=== PATIENT | female | born 1990 | race Asian ===

== ENCOUNTER 2018-11-09 00:56 | Inpatient (IN) | payer OTHER, SELFPAY ==
[2018-11-09 01:26] VITALS: BMI 26.6
--- NOTE | 2018-11-09 01:39 | PDOC.LDHP ---
Labor and Delivery H&P Chief complaint: loss of fluid HPI: Pranav is a 28 y/o at 39.6wks by 16wk US c/w LMP She reports consistent contractions since 11/08. She denies LOF, VB/VD, decreased movement, headache, chest pain, or shortness of breath. She is seen at clinic by Dr. Cuba. Current gestational age (weeks): 39 (.6) Due date: 11/10/18 Dating criteria: last menstrual period Grav: 1 Para: 0 OB History Details: C Current complications: none Abnormal US findings: Yes (hadlock 22%) Past Medical History: none Current medications: pre-mahnaz vitamins Previous surgical history: none Allergies/Adverse Reactions: Allergies Allergy/AdvReac Type Severity Reaction Status Date / Time No Known Allergies Allergy Verified 11/09/18 01:21 Social history: none - Physical Exam Vital signs reviewed and normal: yes General: breathing through contractions Heart: RRR Lungs: CTAB Abdomen: NTTP Extremeties: no edema FHT: category 1 (baseline 130, no decels, accels present), variability present - Vaginal Exam cm dilated: 3 Effacement: 75% Station: -2 - OB Labs Blood type: B RH: positive Antibody Screen: negative HIV: negative RPR: negative HEPSAg: negative 1 hour GCT: negative GBS: negative Urine drug screen: not done Rubella: immune Additional Labs: pap wnl, GC neg - Assessment L&D Assessment: term patient in labor - Plan Plan: admit to L&D, labor augmentation if indicated -: - admit to LD for expectant mgmt for , recheck in 2 hours, labor augmentation if indicated - continuous monitoring - desires epidural, consult anesthesiology Addendum - Attending - Attending Attestation Date/Time: 11/09/18 0750 I personally evaluated the patient and discussed the management with Dr. Braun. I agree with the History, Examination, Assessment and Plan.
[2018-11-09 01:42] LABS: Amnisure Test No Membranes Rupture (No Rupture)
[2018-11-09 01:43] LABS: Amnisure Internal Control QC ACCEPTABLE (ACCEPTABLE)
[2018-11-09] MEDS ORDERED: Ondansetron PF 4 MG/2 ML Vial IVP PRN ×3 (01:50→09:30)
[2018-11-09] MEDS ORDERED: Misoprostol 200 MCG TAB PR PRN (01:50)
[2018-11-09] MEDS ORDERED: Carboprost 250 MCG/ML AMP IM PRN (01:50)
[2018-11-09] MEDS ORDERED: Diphenoxylate HCl/Atropine Tablet PO PRN (01:50)
[2018-11-09] MEDS ORDERED: Methylergonovine 0.2 MG/ML VIAL IM PRN (01:50)
[2018-11-09] MEDS ORDERED: Lidocaine 1% (PF) 30 ML VIAL SC PRN (01:50)
[2018-11-09] MEDS ORDERED: Ibuprofen 800 MG TAB PO PRN (01:50)
[2018-11-09] MEDS ORDERED: Promethazine HCl 25 MG/ML VIAL IM PRN ×2 (01:50→02:56)
[2018-11-09 02:30] LABS: Hemoglobin 13.5 g/dL (12.0-16.0); Mean Corpuscular HGB CONC 34.2 g/dL (32.0-36.0); Mean Corpuscular Hemoglobin 31.4 pg (27.0-31.0); Mean Corpuscular Volume 91.9 fL (78.0-98.0); Mean Platelet Volume 9.8 fL (7.4-10.4); Platelet Count 196 thou/uL (130-400); RBC Distribution Width 12.2 % (11.5-14.5); White Blood Cell (WBC) Count 12.9 thou/uL (4.8-10.8)
[2018-11-09] MEDS ORDERED: Fentanyl 4 mcg/Bup 0.1% Cadd 100 ML ONE (02:36)
[2018-11-09] MEDS ORDERED: Lactated Ringer's 500 ML IV PRN (02:56)
[2018-11-09] MEDS ORDERED: diphenhydrAMINE 50 MG/ML VIAL IVP PRN (02:56)
[2018-11-09] MEDS ORDERED: Acetaminophen 325 MG TAB PO PRN (02:56)
[2018-11-09] MEDS ORDERED: Naloxone HCl 0.4 mg/ml Vial IVP PRN ×2 (02:56)
[2018-11-09] MEDS ORDERED: Eucerin (Mineral Oil/Petrolatum,White) 30 gm Jar TOP PRN (02:56)
[2018-11-09] MEDS ORDERED: ePHEDrine/0.9% NaCl/PF SYRINGE 50 mg/10 ml SLOW IVP PRN (02:56)
[2018-11-09] MEDS: Lactated Ringer's 1,000 ML IV SCH ×3 (02:58→19:41)
[2018-11-09] MEDS ORDERED: Fentanyl 4 mcg/Bupivacaine 0.1% Cassette 100 ML EPIDURAL SCH (03:00)
[2018-11-09] MEDS ORDERED: Communication Order-Pharmacy FS SCH (03:00)
[2018-11-09 03:11] LABS: HBSAg Index 0.36 S/CO (0-0.99); Hep B Surf Ag Non-Reactive S/CO (NonReactive)
[2018-11-09 04:41] LABS: Syphilis Antibody Nonreactive (Nonreactive); Syphilis Antibody Index 0.07 S/CO (<1.00 Non-Reactive)
--- NOTE | 2018-11-09 05:45 | PDOC.LDPN ---
Labor & Delivery Progress Note - Subjective Subjective: comfortable, loss of fluid - Objective Vital signs reviewed and normal: yes General: NAD Uterine fundus: non tender Dilation: 10 Effacement: 100% Station: 0 FHT: category 1 (baseline 140, variable decels, quick recovery ) [place] contractions every: 3 mins AROM: clear fluid - Assessment (1) Intrauterine Code(s): Z34.90 - ENCNTR FOR SUPRVSN OF NORMAL , UNSP, UNSP TRIMESTER Current Visit: Yes Status: Acute Plan: continue plan of care -: - VSS, SROM, epidural placed with adequate pain control - expectant management, prepare for delivery - continuous monitoring Addendum - Attending - Attending Attestation Date/Time: 11/09/18 2851 I personally evaluated the patient and discussed the management with Dr. Braun. I agree with the History, Examination, Assessment and Plan documented above.
--- NOTE | 2018-11-09 05:50 | PDOC.LDPN ---
Labor & Delivery Progress Note - Subjective Subjective: comfortable, vaginal pressure - Objective Vital signs reviewed and normal: yes General: NAD, breathing through contractions Uterine fundus: palpable contractions SVE: Bulging bag Dilation: 10 Effacement: 100% Station: 0 FHT: category 1 (140s baseline pos accels, no decels, mod variability), variability present [place] contractions every: 3 AROM: clear fluid - Assessment (1) Intrauterine Code(s): Z34.90 - ENCNTR FOR SUPRVSN OF NORMAL , UNSP, UNSP TRIMESTER Current Visit: Yes Status: Acute Plan: continue plan of care -: 1) sIUP: Bulging bag ruptured, practice pushes showed no change in station. Pt primip and epidural in place. Will allow labor and position change. Attempt practice pushes in 30min-1hr. Cont plan of care. Addendum - Attending - Attending Attestation Date/Time: 11/09/18 9938 I personally evaluated the patient and discussed the management with Dr. Cuba. I agree with the History, Examination, Assessment and Plan documented above.
[2018-11-09] MEDS: NS / Oxytocin 40 units/1000ml 1,000 ML IV PRN ×2 (06:33→07:29)
--- NOTE | 2018-11-09 07:37 | PDOC.OPDEL ---
OB Operative/Delivery Note Delivery Dr/Surgeon: Bereket Mensah [place] Pre-Delivery Diagnosis: active labor Procedure/Post Delivery Dx: spontaneous vaginal delivery Weeks gestation: 39 (.6) Anesthesia: epidural - Findings A Sex: male - 1 min: 9 - 5 min: 9 - Additional Findings/Plan Placenta delivered: spontaneous Repaired Obstetrical Laceration: episiotomy Estimated blood loss: 300 Post delivery plan: routine recovery
[2018-11-09] MEDS ORDERED: Bupivacaine/Epinephrine 0.25% 30 ML VIAL ONE (09:00)
[2018-11-09] MEDS ORDERED: Ferrous Sulfate 325 MG TAB PO SCH (09:30)
[2018-11-09] MEDS ORDERED: Lanolin Ointment 7 GM TUBE TOP PRN (09:30)
[2018-11-09] MEDS ORDERED: Preparation H Ointment 28 GM TUBE PR PRN (09:30)
[2018-11-09] MEDS ORDERED: Milk Of Magnesia 30 ML UDCUP PO PRN (09:30)
[2018-11-09] MEDS ORDERED: Docusate Calcium (SURFAK) 240 MG CAP PO SCH (09:30)
[2018-11-09] MEDS ORDERED: Bisacodyl 10 MG SUPP PR PRN (09:30)
[2018-11-09] MEDS ORDERED: Benzocaine/Menthol 20-0.5% 60 ML CAN TOP PRN (09:30)
[2018-11-09] MEDS ORDERED: NS / Oxytocin 40 units/1000ml 1,000 ML IV SCH (09:30)
[2018-11-09] MEDS: Prenatal Vitamin 1 TAB PO SCH (10:45)
[2018-11-09] MEDS: HYDROcodone/Acetaminophen 5/325 mg Tablet PO PRN ×2 (12:45→20:50)
[2018-11-09] MEDS: Ibuprofen 800 MG TAB PO SCH ×2 (13:40→20:50)
[2018-11-09] MEDS: Ferrous Sulfate 325 MG TAB PO SCH (14:01)
--- NOTE | 2018-11-09 15:06 | OP ---
DATE OF PROCEDURE: 11/09/2018 DELIVERING PHYSICIANS: Dr. Cuong Cuba, and Dr. Braun. ATTENDING PHYSICIAN: Royce Cano MD. PROCEDURE: 1. Spontaneous vaginal delivery. 2. Episiotomy secondary to bradycardia and inadequate maternal effort. ANESTHESIA: Epidural. EBL: 400 mL. PREOPERATIVE DIAGNOSIS: Term intrauterine in labor. POSTOPERATIVE DIAGNOSES: 1. Term intrauterine , delivered. 2. Second-degree episiotomy repaired and hemostatic. INDICATIONS: The patient is a 28-year-old, G 1, P0, presented in active labor. DESCRIPTION OF PROCEDURE: This is a 28-year-old female, G1, P0, at 39 and 6 weeks, who delivered a viable male infant at 0617 hours on 11/09/2018. Following uneventful antepartum course, a vigorous male infant was delivered in the occiput anterior position. A second-degree episiotomy was cut during the antepartum course secondary to bradycardia. After complete dilation and effacement and +2 station. The baby was noted to have variable decelerations and one episode of bradycardia into the 80s. Additionally, mother is a primigravida, who had inadequate maternal effort through pushing. Following episiotomy there was successful delivery of the head then anterior shoulder and remainder of body were delivered. There was no nuchal cord. The head was held down. The mouth and nares were bulb suctioned. Delayed cord clamping was used and after delay the cord was clamped and cut and cord blood was collected. The placenta delivered intact with three vessel cord noted. Fundal massage was performed. The uterus was firm. The cervix and vagina were inspected and the cervix was found to be free of lacerations. There was a second-degree episiotomy that was cut without any extensions, which was repaired with 3-0 chromic gut suture in the usual fashion with good approximation and hemostasis noted. The infant went to the nursery in good condition for routine care. Apgars were 9 and 9 at 1 and 5 minutes respectively. The patient tolerated delivery well and went to after routine recovery and care. Job ID: [id number] [facility]
[2018-11-09] MEDS: Docusate Calcium (SURFAK) 240 MG CAP PO SCH (20:50)
[2018-11-10] MEDS: HYDROcodone/Acetaminophen 5/325 mg Tablet PO PRN ×2 (02:58→15:09)
[2018-11-10] MEDS: Lactated Ringer's 1,000 ML IV SCH ×3 (03:10→16:52)
[2018-11-10] MEDS: Ibuprofen 800 MG TAB PO SCH ×3 (05:43→22:27)
--- NOTE | 2018-11-10 07:08 | PDOC.PP ---
Post Progress Note Post Day #: 1 Subjective: 28 yo -->1 pp day 1 s/p to [facility] Pena @ 0615. Pt has no complaints and is overall doing well. Reports pain is well controlled. PO intake tolerated: yes Flatus: yes Ambulation: yes Vital Signs (12 hours) Temp Pulse Resp BP BP Pulse Ox 11/10/18 05:35 98.1 F 72 20 126/77 11/10/18 01:40 97.9 F 78 18 121/68 97 11/09/18 20:38 98.0 F 79 18 118/61 99 Weight Weight 70.307 kg - Physical Examination General: NAD Cardiovascular: no m/r/g, RRR Respiratory: clear to auscultation bilaterally, non-labored breathing Abdominal: + bowel sounds, lochia (scant), no distention, appropriately TTP Neurological: no gross focal deficits Psychiatric: A&Ox3, normal affect Result Diagrams: 11/09/18 02:23 Additional Labs: Post Labs Blood Type B POSITIVE 11/09/18 03:36 Hep Bs Antigen Non-Reactive S/CO (NonReactive) 11/09/18 02:23 (1) Vaginal delivery Code(s): O80 - ENCOUNTER FOR FULL-TERM UNCOMPLICATED DELIVERY Status: Acute - Assessment/Plan 1) pp day 1 - ambulating tolerating po and pain well controlled - will continue to monitor and allow pt to establish infant feedings well - consulted, is following. - EBL 400mL, AM hemagram pending. VSS and no evidence of hypovolemia. Dispo: stable, cont to monitor, await AM hemagram results and continue to meet with . Likely DC to home tomorrow.
[2018-11-10 07:47] LABS: Hemoglobin 9.8 g/dL (12.0-16.0); Mean Corpuscular HGB CONC 33.9 g/dL (32.0-36.0); Mean Corpuscular Hemoglobin 31.5 pg (27.0-31.0); Mean Corpuscular Volume 92.8 fL (78.0-98.0); Platelet Count 157 thou/uL (130-400); RBC Distribution Width 12.1 % (11.5-14.5); Red Blood Cell (RBC) Count 3.11 mill/uL (4.20-5.40); White Blood Cell (WBC) Count 13.2 thou/uL (4.8-10.8)
[2018-11-10] MEDS: Prenatal Vitamin 1 TAB PO SCH (08:27)
[2018-11-10] MEDS: Ferrous Sulfate 325 MG TAB PO SCH ×2 (08:27→16:46)
[2018-11-10] MEDS: Docusate Calcium (SURFAK) 240 MG CAP PO SCH ×2 (08:27→22:27)
[2018-11-11] MEDS: HYDROcodone/Acetaminophen 5/325 mg Tablet PO PRN (03:56)
[2018-11-11] MEDS: Lactated Ringer's 1,000 ML IV SCH ×2 (05:24→10:38)
[2018-11-11] MEDS: Ibuprofen 800 MG TAB PO SCH ×3 (05:26→16:10)
--- NOTE | 2018-11-11 08:10 | PDOC.PP ---
Post Progress Note Post Day #: 2 Subjective: 28 yo s/p . Tolerating PO, ambulating. This am pt difficult to awake from a deep sleep. When she did awake she was tearful and wouldnt communicate with me. She has been rooming in with her baby and appears extremely exhausted. She has been seen by CM and her was at bedside yesterday, CM cleared and appears to have supportive home environment. Spoke with nurse who will continue to monitor throughout the AM. PO intake tolerated: yes Flatus: yes Ambulation: yes Vital Signs (12 hours) Temp Pulse Resp BP Pulse Ox 11/11/18 03:55 75 18 116/67 11/10/18 20:16 97.6 F 72 16 110/63 99 Weight Weight 70.307 kg - Physical Examination General: NAD Cardiovascular: no m/r/g, RRR Respiratory: clear to auscultation bilaterally, non-labored breathing Abdominal: + bowel sounds, no distention, appropriately TTP Extremities: negative homans (B) Skin: no rash Neurological: no gross focal deficits Deviation from normal: Tearful. Appears Exhausted. Result Diagrams: 11/11/18 11:02 11/11/18 11:02 Additional Labs: Post Labs Blood Type B POSITIVE 11/09/18 03:36 Hep Bs Antigen Non-Reactive S/CO (NonReactive) 11/09/18 02:23 (1) Vaginal delivery Code(s): O80 - ENCOUNTER FOR FULL-TERM UNCOMPLICATED DELIVERY Status: Acute (2) Exhaustion Code(s): R53.83 - OTHER FATIGUE Status: Acute - Assessment/Plan 1) s/p 11/09 - cont current care - dc norco - would recommend rest period for mother and consider baby in nursery this PM if she is unable to be discharged later this afternoon 2) Exhaustion: - mother in extremely deep sleep on initial encounter, on return to room pt awoke briefly and was tearful returned to sleep shortly after. Exam is otherwise benign and her abdomen is soft, NT, ND, with firm uterus. Her vitals are stable. - Baby moved to nursery, will have primary team re-assess later this afternoon and if her overall mentation and mood improves plan for dc, otherwise cont monitoring overnight and keep baby in NB nursery and room to feed only. Addendum - Attending - Attending Attestation Date/Time: 11/12/18 1011 I personally evaluated the patient and discussed the management with Dr. Cuba. I agree with the History, Examination, Assessment and Plan documented above.
[2018-11-11] MEDS: Docusate Calcium (SURFAK) 240 MG CAP PO SCH (10:38)
[2018-11-11] MEDS: Prenatal Vitamin 1 TAB PO SCH (10:38)
[2018-11-11] MEDS: Ferrous Sulfate 325 MG TAB PO SCH ×2 (10:38→16:10)
[2018-11-11 11:09] LABS: #Basophils 0.1 thou/uL (0.0-0.2); #Eosinphils 0.8 thou/uL (0.0-0.7); #Lymphocytes 2.6 thou/uL (1.20-3.40); #Monocytes 0.8 thou/uL (0.11-0.59); %Basophils 0.4 % (0.0-1.0); %Eosinophils 5.7 % (0.0-10.0); %Lymphocytes 18.3 % (21.0-51.0); %Monocytes 5.3 % (0.0-10.0); %Neutrophils 70.3 % (42.0-75.0); Hemoglobin 10.8 g/dL (12.0-16.0); Mean Corpuscular HGB CONC 33.6 g/dL (32.0-36.0); Mean Corpuscular Hemoglobin 31.2 pg (27.0-31.0); Mean Platelet Volume 8.8 fL (7.4-10.4); Platelet Count 183 thou/uL (130-400); RBC Distribution Width 12.1 % (11.5-14.5); Red Blood Cell (RBC) Count 3.47 mill/uL (4.20-5.40); White Blood Cell (WBC) Count 14.2 thou/uL (4.8-10.8)
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
[2018-11-11 11:32] LABS: ALT (SGPT) 15 U/L (8-55); AST (SGOT) 21 U/L (5-34); Albumin 3.2 g/dL (3.5-5.0); Alkaline Phosphatase 180 U/L (40-150); Anion Gap 11 mmol/L (10-20); BUN (Urea Nitrogen) 12 mg/dL (7.0-18.7); Bilirubin, Total 0.2 mg/dL (0.2-1.2); Calc. Creatinine Clearance 144 mL/min (70-130); Calcium 9.2 mg/dL (7.8-10.44); Carbon Dioxide 26 mmol/L (22-29); Chloride 106 mmol/L (98-107); Estimated GFR-MDRD Greater than 90; Globulin 2.9 g/dL (2.4-3.5); Glucose 78 mg/dL (70-105); Protein, Total 6.1 g/dL (6.0-8.3); Sodium 139 mmol/L (136-145)
--- NOTE | 2018-11-11 15:15 | CT ---
CT BRAIN WITHOUT CONTRAST: HISTORY: Altered mental status. Two days . FINDINGS: No evidence of infarct, hemorrhage, midline shift, or abnormal extraaxial fluid collections is seen. The ventricular size is normal, and the basilar cisterns are patent. The bony calvarium is intact. There is mild mucosal disease in the paranasal sinuses. IMPRESSION: No CT evidence of acute intracranial process. POS: [facility]
[2018-11-11 15:25] LABS: Amphetamine Not Detected (NotDetected); Barbiturates Screen Not Detected (NotDetected); Benzodiazepine Screen Not Detected (NotDetected); Cocaine Metabolite Screen Not Detected (NotDetected); Medtox Control Line Valid? VALID (VALID); Medtox Reader # READER 4; Methadone Not Detected (NotDetected); Methamphetamine Not Detected (NotDetected); Opiate Screen Detected (NotDetected); Oxycodone Screen Not Detected (NotDetected); Phencyclidine (PCP) Not Detected (NotDetected); THC/Cannabinoid Screen Not Detected (NotDetected); Tricyclic Screen Not Detected (NotDetected)
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
[2018-11-11] MEDS: Acetaminophen 500 MG TAB PO PRN (22:29)
[2018-11-12] MEDS: Ibuprofen 800 MG TAB PO SCH ×4 (01:13→21:23)
[2018-11-12] MEDS: Docusate Calcium (SURFAK) 240 MG CAP PO SCH ×3 (01:13→21:23)
[2018-11-12] MEDS: Lactated Ringer's 1,000 ML IV SCH ×4 (02:00→21:24)
--- NOTE | 2018-11-12 07:54 | PRG ---
DATE OF SERVICE: 11/12/2018 SUBJECTIVE: The patient is day #3 status post a term spontaneous vaginal delivery, yesterday was complicated by psychosocial event of unknown significance at this time. The patient had a period of time where she appears to have chosen to withdraw and not communicate with staff or family members. She was tearful, was not combative, but uncooperative at times. After a complete workup for any organic causes, the patient seemed to suddenly reverse her affect and mood after being told that the baby's disposition was in question as to who would be caring for the child as she did not appear to be in any position to be discharged home with the baby. At this point in time, mother suddenly became coherent, alert and cooperative. After some discussion as to the reasoning behind her behavior, the patient smiled and reports she could not explain it. She reported that she could hear what was going on, but could not talk. All this being said with a language barrier as patient is from [facility]. After a complete evaluation yesterday, patient was ultimately seen by [facility] and placed on a waiting list to go to the [facility] believing that she is having a psychosis. However given these sudden reversal in affect and mood, this likely will not be needed any longer. OBJECTIVE: VITAL SIGNS: This morning blood pressure is 122/62, temperature 98.0, pulse is 77, respiratory rate of 20, saturating 98% on room air. GENERAL: She appears to be in no acute distress. She is alert, oriented, cooperative, and pleasant to interact with. HEENT: Head is normocephalic, atraumatic. ASSESSMENT AND PLAN: The patient is day #3 status post a term spontaneous vaginal delivery. I would recommend continuing observation through the day. If she continues to do to appear normal without any unusual break in her mood and affect, the patient like can be discharged home. Of note, patient has no support system here and lives alone. Father of the baby lives separate from her and it is unsure at this time the exact relationship. Please refer to the resident note for more details. Job ID: [id number]
[2018-11-12] MEDS: Prenatal Vitamin 1 TAB PO SCH (09:10)
[2018-11-12] MEDS: Ferrous Sulfate 325 MG TAB PO SCH ×2 (09:11→18:19)
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
--- NOTE | 2018-11-12 18:19 | PDOC.EVN ---
Event Note - Event Note Event Note: Pt has yet to be re-evaluated by [facility]. CM to contact and arrange for re- evaluation. Per nurse pts boyfriend had to drive to [place], as such pt does not have ride home assuming she is cleared by [facility]. Per nursery nurse, CPS case not opened as urgent,so they will see child within 72 hours. If pt is cleared by MR she may be discharged with her child pending transportation. Will await MR evaluation and recommendations and re-assess.
[2018-11-13] MEDS: Lactated Ringer's 1,000 ML IV SCH (02:50)
[2018-11-13] MEDS: Acetaminophen 500 MG TAB PO PRN (05:03)
[2018-11-13] MEDS: Ibuprofen 800 MG TAB PO SCH (05:42)
--- NOTE | 2018-11-13 07:43 | PDOC.PP ---
Post Progress Note Post Day #: 4 Subjective: 28 yo pp day 4. Pt had episode of brief psychosis and was evlauated by MR and determined not to be a threat to herself or her child. Since that episode she has returned to her normal mood and affect. She continues breast feeding appropriately and is bonding with her child. She states she is ready to go home. PO intake tolerated: yes Flatus: yes Ambulation: yes Vital Signs (12 hours) Temp Pulse Resp BP 11/13/18 00:28 97.6 F 71 18 125/73 11/12/18 19:45 98.5 F 71 18 120/61 Weight Weight 70.307 kg - Physical Examination General: NAD Cardiovascular: no m/r/g, RRR Respiratory: clear to auscultation bilaterally, non-labored breathing Abdominal: + bowel sounds, no distention, appropriately TTP Neurological: no gross focal deficits Psychiatric: A&Ox3, normal affect Result Diagrams: 11/11/18 11:02 11/11/18 11:02 Additional Labs: Post Labs Blood Type B POSITIVE 11/09/18 03:36 Hep Bs Antigen Non-Reactive S/CO (NonReactive) 11/09/18 02:23 (1) Vaginal delivery Code(s): O80 - ENCOUNTER FOR FULL-TERM UNCOMPLICATED DELIVERY Status: Acute (2) psychosis Code(s): O99.345 - OTHER MENTAL DISORDERS COMPLICATING THE PUERPERIUM; 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 CPS to f/u in pts home within 24 hours of discahrge Dispo: stable, DC to home today.
[2018-11-13 08:35] VITALS: BP 123/94; TEMP 98.1
[2018-11-13] MEDS: Ferrous Sulfate 325 MG TAB PO SCH (09:21)
[2018-11-13] MEDS: Docusate Calcium (SURFAK) 240 MG CAP PO SCH (09:23)
[2018-11-13] MEDS: Prenatal Vitamin 1 TAB PO SCH (09:23)
== END 2018-11-13 13:00 | disposition home or self-care (01) | DRG 807 ==
LOC: L&D/OP 00:56 → L&D 02:36 → 3SW 09:27
PROVIDERS: ADMIT Obstetrics & Gynecology; ATTEND Obstetrics & Gynecology
PROC: 10E0XZZ Delivery of Products of Conception, External Approach (ICD-10-PCS; principal; 2018-11-09)
PROC: 0KQM0ZZ Repair Perineum Muscle, Open Approach (ICD-10-PCS; 2018-11-09)
PROC: 0W8NXZZ Division of Female Perineum, External Approach (ICD-10-PCS; 2018-11-09)
PROC: 10907ZC Drainage of Amniotic Fluid, Therapeutic from Products of Conception, Via Natural or Artificial Opening (ICD-10-PCS; 2018-11-09)
DX: O76 Abnormality in fetal heart rate and rhythm complicating labor and delivery (principal); Z37.0 Single live birth; Z3A.39 39 weeks gestation of pregnancy; O70.1 Second degree perineal laceration during delivery; O99.345 Other mental disorders complicating the puerperium; F53.1 Puerperal psychosis; O75.81 Maternal exhaustion complicating labor and delivery; F53.0 Postpartum depression
CPT/HCPCS: 36415; 36416; 51702; 70450; 80053; 80306; 84112; 84443; 85025; 85027; 86140; 86780; 86850; 86900; 86901; 87340; 99285; J2001